=== PATIENT | male | born 1950 | race Caucasian/White ===

== ENCOUNTER 2016-04-24 07:03 | Emergency (ER) | payer OTHER ==
[2016-04-24] MEDS ORDERED: ONDANSETRON DISINTEGRATING 4 MG TAB PO ONE (08:14)
[2016-04-24] MEDS ORDERED: ONDANSETRON DISINTEGRATING 4 MG TAB ONE (08:15)
--- NOTE | 2016-04-24 08:19 | EDPHY ---
H & P Time Seen by Provider: 04/24/16 07:57 HPI/ROS: CHIEF COMPLAINT: Headache, chronic pain, vomiting HISTORY OF PRESENT ILLNESS: 65-year-old male presents to the emergency department by private vehicle complaining of chronic headaches, chronic diffuse pain in his body and now vomiting. The patient has a history of chronic pain. He takes oxycodone 15 mg every 6 hours. He ran out of his medication yesterday morning. The patient feels that he is experiencing symptoms of withdrawal. The patient has a history of chronic headaches and the headache that he has now feels exactly like his chronic headaches. Patient states I have fibromyalgia . He denies any reported trauma. He has vomited twice although does not feel nauseous now. No neck pain. No chest pain or difficulty breathing. Denies abdominal pain. He denies diarrhea. He has had normal bowel movements. REVIEW OF SYSTEMS: Constitutional: No fever, no chills. Eyes: No double or blurry vision. ENT: No sore throat. Respiratory: No cough, no shortness of breath. Cardiac: No chest pain. Gastrointestinal: Vomiting. No abdominal pain or diarrhea Genitourinary: No dysuria. Musculoskeletal: No neck or back pain. Skin: No rashes. Neurological: Headache as above Past Medical/Surgical History: Chronic pain, narcotic dependence Social History: Single Smoking Status: Former smoker Physical Exam: General Appearance: Alert, no distress. Afebrile. No apparent distress. No vomiting on exam. 184/102, 97% on room air. Eyes: Pupils equal and round. Extraocular motions are all intact. ENT: Mouth: Mucous membranes moist. Respiratory: No wheezing, rhonchi, or rales, lungs are clear to auscultation. Cardiovascular: Regular rate and rhythm. Gastrointestinal: Abdomen is soft and nontender, no masses, no rebound or guarding, bowel sounds normal. No CVA tenderness bilaterally. Neurological: Alert and oriented x 3, cranial nerves II through XII grossly intact Skin: Warm and dry, no rashes. Musculoskeletal: Nontender to palpate along the cervical, thoracic or lumbar spine. Neck is supple. Extremities: Full range of motion and no peripheral edema. Psychiatric: Patient is oriented X 3, there is no agitation. Constitutional: Initial Vital Signs Temperature (C) 36.8 C 04/24/16 07:14 Heart Rate 100 04/24/16 07:14 Respiratory Rate 22 H 04/24/16 07:14 Blood Pressure 184/102 H 04/24/16 07:14 O2 Sat (%) 97 04/24/16 07:14 O2 Delivery Mode Room Air Allergies/Adverse Reactions: No Known Allergies Allergy (Verified 04/24/16 07:13) Home Medications: Medication Instructions Recorded Oxycodone HCl 02/03/16 Amlodipine Besylate 04/24/16 Lisinopril 04/24/16 Ondansetron Odt [Zofran Odt] 4 mg PO Q4PRN #5 tab 04/24/16 oxyCODONE IR [Oxycodone Ir (*)] 15 mg PO TID PRN #13 tab 04/24/16 Medical Decision Making ED Course/Re-evaluation: 65-year-old male presents to the emergency department with chronic pain. He ran out of his chronic pain medication. The patient feels that his headache and his diffuse myalgias are what he experiences daily and for years. He does not feel that the headache is abnormal or unusual for him. He feels that this is the same typical headache that he gets daily. He ran out of his pain medication yesterday and he states I think I am experiencing symptoms of withdrawal. The patient is on a chronic pain contract with [facility]. The patient is aware that receiving prescription for chronic pain medication in the emergency department is breathing his pain contract with [facility]. Departure - Departure Disposition: Home, Routine, Self-Care Clinical Impression: Chronic pain Qualifiers: Chronic pain type: chronic pain syndrome Qualifier Code: (G89.4) Chronic pain syndrome Headache Qualifiers: Headache type: unspecified Headache chronicity pattern: chronic headache Intractability: not intractable Qualifier Code: (R51) Headache Condition: Good Instructions: Chronic Pain (ED), General Headache (ED), Acute Nausea and Vomiting (ED) Additional Instructions: You declined any workup for your headache and chronic pain. Please follow up with your primary care provider regarding her ongoing chronic pain medication. Zofran as needed for nausea. Take your oxycodone as prescribed. Return to the emergency department if your symptoms change, if he developed an atypical headache, or if you feel worse in any way. Referrals: Odalis Castro PA [Primary Care Provider] - 1 day without fail Prescriptions: oxyCODONE IR [Oxycodone Ir (*)] 15 mg PO TID PRN #13 tab PRN Reason: Pain, Moderate Ondansetron Odt [Zofran Odt] 4 mg PO Q4PRN #5 tab
[2016-04-24 08:35] VITALS: BP 145/89; PULSE 86; RESP 18; TEMP 97.7; O2SAT 96
== END 2016-04-24 08:33 | disposition home or self-care (01) ==
DX: R51 Headache (principal); G89.4 Chronic pain syndrome; Z87.891 Personal history of nicotine dependence

== ENCOUNTER 2016-11-13 03:37 | Emergency (ER) | payer OTHER ==
[2016-11-13 03:51] VITALS: RESP 16
--- NOTE | 2016-11-13 05:37 | EDPHY ---
H & P Stated Complaint: HTN HPI/ROS: HPI The patient presents with elevated blood pressure tonight with systolic of 200. He is being treated for herpes zoster with V2 distribution. He has finished a course of acyclovir. He has had a facial droop for the last several days on this side but thought it became a little bit worse tonight and that is why he checked his blood pressure. He does not have any weakness of his arms or legs, dizziness, headache, vomiting.. REVIEW OF SYSTEMS Constitutional: No fever, no chills. Eyes: No discharge. ENT: No sore throat. Cardiovascular: No chest pain, no palpitations. Respiratory: No cough, no shortness of breath. Gastrointestinal: No abdominal pain, no vomiting. Genitourinary: No hematuria. Musculoskeletal: No back pain. Skin: No rashes. Neurological: No headache. 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, unable to raise his eyebrow, can fully close eyelid Skin: Vesicular rash in left face in V2 distribution Musculoskeletal: Neck is supple non tender Extremities: symmetrical, full range of motion Psychiatric: Patient is oriented X 3, there is no agitation Source: Patient Exam Limitations: No limitations - Personal History Current Tetanus/Diphtheria Vaccine: Unsure Current Tetanus Diphtheria and Acellular Pertussis (TDAP): Unsure - Medical/Surgical History Hx Asthma: No Hx Chronic Respiratory Disease: No Hx Diabetes: No Hx Cardiac Disease: Yes Hx Renal Disease: No Hx Cirrhosis: No Hx Alcoholism: No Hx HIV/AIDS: No Hx Splenectomy or Spleen Trauma: No Other PMH: chronic neck pain, spinal stenosis, hernia repair, tennis elbow, knee surgery, bone spur surgery on right big toe, heart murmur, hepatitis A - Social History Smoking Status: Former smoker Constitutional: Initial Vital Signs Temperature (C) 37.1 C 11/13/16 03:49 Heart Rate 107 H 11/13/16 03:49 Respiratory Rate 16 11/13/16 03:49 Blood Pressure 175/98 H 11/13/16 03:49 O2 Sat (%) 97 11/13/16 03:49 O2 Delivery Mode Room Air Allergies/Adverse Reactions: No Known Allergies Allergy (Verified 04/24/16 07:13) Home Medications: Medication Instructions Recorded Oxycodone HCl 02/03/16 Amlodipine Besylate 04/24/16 Lisinopril 04/24/16 Ondansetron Odt [Zofran Odt] 4 mg PO Q4PRN #5 tab 04/24/16 oxyCODONE IR [Oxycodone Ir (*)] 15 mg PO TID PRN #13 tab 04/24/16 Acyclovir 800 mg PO 5XD #35 tab 11/13/16 predniSONE [Prednisone] 60 mg PO DAILY #30 tablet 11/13/16 Medical Decision Making - Diagnostics Imaging Results: CT of head non con shows no acute findings, discussed with the radiologist software test automation engineer. Imaging: Discussed imaging studies w/ knockup worker Radiologist Differential Diagnosis: This is a 66-year-old man with history of chronic pain on multiple medications, recent diagnosis of left-sided facial and shingles, who presents with elevated blood pressures at home with systolic of 200 over diastolic of 103. He also reports new left-sided facial droop for the last few days which he thinks was worse tonight. On exam, he does have a rash consistent with varicella zoster. He does have a facial droop which involves his eyebrow lift. His blood pressure has improved since being in the emergency department. Differential diagnosis includes Kenneth Ramos syndrome, Vallejo's palsy, less likely CVA. In the emergency department, CT scan of the head was performed to evaluate for any intracranial hemorrhage or CVA. This was unremarkable. 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 I will write for a 2nd course of acyclovir as well as prednisone for his symptoms. He has follow-up tomorrow with [facility]. He will return to the emergency room if he is worse in any way. I have advised him to monitor his blood pressure, however since its normalization in the emergency room, I doubt any acute intervention is required. 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
[2016-11-13 05:43] VITALS: BP 145/78; PULSE 78; TEMP 98.1; O2SAT 97
== END 2016-11-13 05:43 | disposition home or self-care (01) ==
DX: I10 Essential (primary) hypertension (principal); B02.21 Postherpetic geniculate ganglionitis; Z87.891 Personal history of nicotine dependence

== ENCOUNTER 2016-12-16 17:19 | Inpatient (IN) | payer OTHER ==
--- NOTE | 2016-12-16 17:25 | EDPHY ---
H & P HPI/ROS: CHIEF COMPLAINT: Syncope HISTORY OF PRESENT ILLNESS: This patient is a 66 year old male arriving via EMS following a syncopal episode this afternoon shortly prior to arrival. He has noted weakness over the last two or three weeks which seems to be related to taking gabapentin for post- herpetic neuralgia. He feels lightheaded when he stands and has noted muscle weakness and twitching. He has also had a reduced activity level recently, and felt off balance while walking yesterday. These symptoms have persisted since he began the gabapentin, but he does feel the post-herpetic pain is significantly reduced by the medication. His most recent dose was at 10am this morning. As usual, he began to feel dizzy after taking the medication. Just prior to arrival, he was at the grocery store, and bystanders summoned EMS because he appeared quite weak. EMS found him sitting in a chair, fully alert and oriented, and when they attempted to help him stand, he had a syncopal episode. He was once again alert and oriented following the episode. He was noted to be hypotensive in transport. The patient denies any other recent changes in medication. He denies recent trauma. No nausea, vomiting, diarrhea, hematochezia, or melena. He endorses reduced appetite and fluid consumption recently. REVIEW OF SYSTEMS: A 10 point review of systems was performed and is negative with the exception of the elements mentioned in the history of present illness. - Medical/Surgical History PMH: 1. Hypertension 2. Shingles 3. Chronic neck pain 4. hernia repair 5. tennis elbow 6. Knee surgery 7. Bone spur surgery on right big toe 8. Heart murmur 9. Hepatitis A 10. Spinal stenosis Hx Asthma: No Hx Chronic Respiratory Disease: No Hx Diabetes: No Hx Cardiac Disease: Yes Hx Renal Disease: No Hx Cirrhosis: No Hx Alcoholism: No Hx HIV/AIDS: No Hx Splenectomy or Spleen Trauma: No Other PMH: chronic neck pain, spinal stenosis, hernia repair, tennis elbow, knee surgery, bone spur surgery on right big toe, heart murmur, hepatitis A - Social History Smoking Status: Former smoker Additional Social History: Lives independently at [facility]. Former smoker. Disabled. PCP Odalis Castro at [facility]. - Physical Exam Exam: General Appearance: Alert, no distress Eyes: Pupils equal and round, no conjunctival pallor or injection ENT, Mouth: Mucous membranes dry Neck: Normal inspection Respiratory: End expiratory wheezes. Cardiovascular: Regular rate and rhythm Gastrointestinal: Abdomen is soft and non- tender Neurological: A&O, nonfocal, normal gait Skin: Warm and dry, no rash Extremities: Nontender, no pedal edema Psychiatric: Mood and affect normal Constitutional: Initial Vital Signs Temperature (C) 36.4 C 12/16/16 17:31 Heart Rate 73 12/16/16 17:31 Respiratory Rate 23 H 12/16/16 17:31 Blood Pressure 110/73 12/16/16 17:31 O2 Sat (%) 93 12/16/16 17:31 O2 Delivery Mode Room Air Allergies/Adverse Reactions: No Known Allergies Allergy (Verified 12/16/16 18:47) Home Medications: Medication Instructions Recorded Acetaminophen [Tylenol 325mg (*)] 650 mg PO Q6H PRN 12/16/16 Amitriptyline HCl [Elavil 50 mg 25 - 50 mg PO HS PRN 12/16/16 (*)] Gabapentin [Neurontin 300 MG (*)] 600 - 900 mg PO TID PRN 12/16/16 Lisinopril/Hctz 20/12.5MG 2 ea PO DAILY 12/16/16 [Zestoretic/Prinzide 20/12.5MG (*)] Trolamine Salicylate [Aspercreme] 1 kerrie TP TID PRN 12/16/16 amLODIPine BESYLATE [Norvasc 10 mg 10 mg PO DAILY 12/16/16 (*)] oxyCODONE IR [Oxycodone Ir (*)] 15 mg PO Q4H PRN 12/16/16 Medical Decision Making - Diagnostics EKG Interpretation: EKG interpreted by me reveals normal sinus rhythm, rate 68, nonspecific T-wave changes in the inferior leads ED Course/Re-evaluation: 66 year old male presents following a syncopal episode and 2-3 week history of lightheadedness and muscle weakness. He was evaluated here 11/13 for facial droop and hypertension related to his herpes zoster infection (V2 distribution) and discharged home in good condition. 17:20 Received EMS report at bedside. Plan for labs including CBC, BMP, and Troponin. Plan to administer 1L IV NS. Hypotension resolved after IV fluids. Creatinine and BUN elevated consistent with acute renal failure. Most likely secondary to dehydration and hypotension. Plan for UA, Bladder scan, renal ultrasound. 18:[address] consulted with [address]ist service. Dr. Soler accepts admission for acute renal failure and syncope. Differential Diagnosis: Differential diagnosis includes does not limited to urinary retention, side effect from medication, dehydration, intrinsic renal disease. - Data Points Laboratory Results: Laboratory Results 12/16/16 17:30 12/16/16 17:30 Medications Given: Amlodipine Besylate (Norvasc) 10 mg PO DAILY [facility] Stop: 06/15/17 08:59 Last Admin: 12/17/16 08:09 Dose: 10 mg Gabapentin (Neurontin) 600 - 900 mg PO TID PRN PRN Reason: Pain, Moderate Stop: 06/14/17 19:39 Last Admin: 12/17/16 12:29 Dose: 900 mg Heparin Sodium (Porcine) (Heparin Sc Injection) 5,000 unit SC Q8 [facility] Stop: 06/14/17 21:59 Last Admin: 12/17/16 14:44 Dose: 5,000 unit Sodium Chloride (Ns) 1,000 mls @ 100 mls/hr IV CONT [facility] Stop: 06/14/17 19:44 Last Admin: 12/17/16 08:09 Dose: 1,000 mls Oxycodone HCl (Oxycodone Ir) 15 mg PO Q4H PRN PRN Reason: Pain, Severe Stop: 12/26/16 19:39 Last Admin: 12/17/16 19:49 Dose: 15 mg Tamsulosin HCl (Flomax) 0.4 mg PO DAILY [facility] Stop: 06/15/17 08:59 Last Admin: 12/17/16 08:09 Dose: 0.4 mg Discontinued Medications Sodium Chloride (Ns) 1,000 mls @ 0 mls/hr IV ONCE ONE; Wide Open PRN Reason: Protocol Stop: 12/16/16 18:36 Last Admin: 12/16/16 18:38 Dose: 1,000 mls Departure - Departure Disposition: [facility] Inpatient Acute Clinical Impression: Acute renal failure Qualifiers: Acute renal failure type: unspecified Qualified Code(s): N17.9 - Acute kidney failure, unspecified Syncope Qualifiers: Syncope type: unspecified Qualified Code(s): R55 - Syncope and collapse Condition: Fair Report Scribed for: Zenobia Landeros Report Scribed by: Lorena Steel Date of Report: 12/16/16 Time of Report: 17:24 Physician Review and Approval Statement: 12/16/16 17:24 Portions of this note were transcribed by a medical language specialist. I personally performed a history, physical exam, medical decision making, and confirmed accuracy of information the transcribed note.
--- NOTE | 2016-12-16 17:43 | CPEKG ---
Heart Rate: 68 RR Interval: 882 P-R Interval: 172 QRSD Interval: 102 QT Interval: 364 QTC Interval: 388 P Rives: 64 QRS Rives: -34 T Wave Rives: -3 EKG Severity - BORDERLINE ECG - EKG Impression: SINUS RHYTHM EKG Impression: LEFT AXIS DEVIATION EKG Impression: BORDERLINE T ABNORMALITIES, INFERIOR LEADS Electronically Signed By: Zenobia Landeros 16-Dec-2016 22:58:06
[2016-12-16 17:56] LABS: % IMMATURE GRANULYOCYTES 0.4 % (0.0-1.1); ABSOLUTE IMMATURE GRANULOCYTES 0.05 10^3/uL (0.00-0.10); ADD DIFF? NO; ADD MORPH? NO; ADD SCAN? NO; ATYPICAL LYMPHOCYTE FLAG 0 (0-99); FRAGMENT RBC FLAG 0 (0-99); HEMATOCRIT 33.8 % (40.0-51.0); HEMOGLOBIN 11.1 g/dL (13.7-17.5); LEFT SHIFT FLG 0 (0-99); LIPEMIA HEMOLYSIS FLAG 80 (0-99); MEAN CELL HEMOGLOBIN 31.1 pg (27.9-34.1); MEAN CELL HEMOGLOBIN CONCENTR. 32.8 g/dL (32.4-36.7); MEAN CELL VOLUME 94.7 fL (81.5-99.8); MEAN PLATELET VOLUME 10.5 fL (8.7-11.7); PLATELET CLUMPS FLAG 0 (0-99); PLATELET COUNT 312 10^3/uL (150-400); RED BLOOD CELL COUNT 3.57 10^6/uL (4.40-6.38); RED CELL DISTRIBUTION WIDTH 13.5 % (11.5-15.2)
[2016-12-16 18:05] LABS: ANION GAP 14 mEq/L (8-16); CALCIUM 9.3 mg/dL (8.5-10.4); CARBON DIOXIDE 20 mEq/l (22-31); CHLORIDE 102 mEq/L (97-110); CREATININE 3.5 mg/dL (0.7-1.3); GLOMERULAR FILTRATION RATE 18; GLUCOSE 141 mg/dL (70-100); POTASSIUM 4.8 mEq/L (3.5-5.2); SODIUM 136 mEq/L (134-144)
[2016-12-16 18:17] LABS: TROPONIN I < 0.012 ng/mL (0.000-0.034)
[2016-12-16] MEDS ORDERED: NS 1,000 ML IV ONE (18:35)
[2016-12-16] MEDS ORDERED: AMITRIPTYLINE HCL 50 MG TAB PO PRN (19:40)
[2016-12-16] MEDS ORDERED: ACETAMINOPHEN 325 MG TAB PO PRN ×2 (19:40)
[2016-12-16] MEDS ORDERED: ONDANSETRON 4 MG/2 ML VIAL IVP PRN (19:40)
--- NOTE | 2016-12-16 20:32 | GHP ---
[f rep st] HISTORY AND PHYSICAL DATE OF ADMISSION: 12/16/2016 CHIEF COMPLAINT: Weakness and syncope. HISTORY: The patient is a 66-year-old male who has felt increasingly more weak over the last 2-3 wee ks. He attributes timing of weakness related to initiation of gabapentin for some postherpetic neura lgia. He has been getting increasingly more lightheaded when he stands up. Today he walked to the [employer] store and in the grocery store a bystander called 911 because he was so profoundly weak. EMS arrived and at that point he was sitting in chair, but when they tried to get him up he had syncope r ight in front of EMS. He had hypotension en route. He complains of decreased oral intake as well as decreased urine output for the last couple of days. He has had some difficulty with urination. The re has been no nausea or vomiting. He has muscle twitching which he attributes to the gabapentin. PAST MEDICAL HISTORY: 1. Postherpetic neuralgia. 2. Neck pain with continuous narcotic dependency. 3. Hypertension. PAST SURGICAL HISTORY: Neck surgery. MEDICATIONS: Please see computer record for full detailed list. ALLERGIES: No known drug allergies. SOCIAL HISTORY: No smoking. No alcohol. Lives at [facility]. REVIEW OF SYSTEMS: A complete review of systems obtained and review of systems is negative regarding constitutional, HEENT, GI, pulmonary, cardiovascular, , hematology, skin, musculoskeletal, endocri ne, psych except for positives and negatives as in HPI. FAMILY HISTORY: Reviewed, noncontributory to presenting complaint. PHYSICAL EXAMINATION: GENERAL: Well-developed, well-nourished male, in no acute distress. VITAL SI GNS: Temperature 36.4, pulse 73, blood pressure 103/57, saturating 91% on room air. HEENT: Eyes: Normal conjunctivae. Pupils react to light. ENT: Normal ears and nose. Hearing intact. Normal li ps and teeth. Oropharynx moist. NECK: Trachea midline. No thyromegaly. CHEST: Normal respirator y effort. Lungs clear to auscultation bilaterally. CARDIOVASCULAR: Regular rhythm. No murmur. No extremity edema. ABDOMEN: Soft, nontender. No hepatosplenomegaly. SKIN: Warm, dry, intact. No r french. MUSCULOSKELETAL: No cyanosis or clubbing. Strength 5/5 upper and lower extremities. NEUROLOG IC: Cranial nerves intact, normal sensation to light touch. PSYCH: Alert and oriented x3. Normal mood and affect. Normal judgment and insight. Normal memory. LABORATORY: White count 12.5, hematocrit 37.8, platelets 312. Sodium 136, potassium 4.8, chloride 1 02, bicarb 20, BUN 47, creatinine 3.5, glucose 141, troponin is negative. EKG viewed by me: My personal interpretation is normal sinus rhythm, no ST or T-wave changes. Renal ultrasound shows no hydronephrosis. He had a bladder volume of 344 and he was unable to void. ASSESSMENT/PLAN: 1. Acute renal failure. Baseline creatinine is normal as we have documentation of a creatinine of 1 .0 in January,. I suspect this is a combination of hypovolemia plus ongoing lisinopril and hyd rochlorothiazide administration as well as an element of obstruction due to likely BPH. I will also check a CPK. Will hydrate with IV fluid, hold his SUBHASH inhibitor and diuretic. We will follow bladde r scans and if he has persistent elevation of residuals, he may need a catheter. I will start him on Flomax. 2. Syncope. I suspect this was due to hypovolemia. Will also watch him on telemetry and check a TS H. 3. Post herpetic neuralgia. I doubt gabapentin has caused his abnormalities and it can be continued if needed. He does say it helps quite a bit for his pain. 4. Chronic neck pain with continuous narcotic dependency. His home doses of oxycodone will be quin nued. 5. Deep venous thrombosis prophylaxis. He is high risk. Will place him on subcu heparin. CODE STATUS: Full. ADMISSION STATUS: Will admit to inpatient as I anticipate greater than 2 midnights given severity of acute renal failure on presentation. /[id number]/MODL
[2016-12-16] MEDS: HEPARIN 5,000 UNIT/0.5 ML SYR SC SCH (22:02)
[2016-12-16] MEDS: NS 1,000 ML IV SCH (22:03)
[2016-12-16] MEDS: GABAPENTIN 300 MG CAP PO PRN (22:55)
[2016-12-16 23:14] LABS: COLOR YELLOW; LEUKOCYTE ESTERASE,URINE NEGATIVE (NEGATIVE); NITRITE,URINE NEGATIVE (NEGATIVE)
[2016-12-16] MEDS: oxyCODONE IR 15 MG TAB PO PRN (23:46)
[2016-12-17] MEDS: oxyCODONE IR 15 MG TAB PO PRN ×4 (03:30→19:49)
[2016-12-17 04:43] LABS: % IMMATURE GRANULYOCYTES 0.4 % (0.0-1.1); ABSOLUTE IMMATURE GRANULOCYTES 0.03 10^3/uL (0.00-0.10); ADD DIFF? NO; ADD MORPH? NO; ADD SCAN? NO; ATYPICAL LYMPHOCYTE FLAG 0 (0-99); FRAGMENT RBC FLAG 0 (0-99); HEMATOCRIT 29.8 % (40.0-51.0); HEMOGLOBIN 9.8 g/dL (13.7-17.5); LEFT SHIFT FLG 0 (0-99); LIPEMIA HEMOLYSIS FLAG 80 (0-99); MEAN CELL HEMOGLOBIN 30.8 pg (27.9-34.1); MEAN CELL HEMOGLOBIN CONCENTR. 32.9 g/dL (32.4-36.7); MEAN CELL VOLUME 93.7 fL (81.5-99.8); MEAN PLATELET VOLUME 10.4 fL (8.7-11.7); PLATELET CLUMPS FLAG 0 (0-99); PLATELET COUNT 275 10^3/uL (150-400); RED BLOOD CELL COUNT 3.18 10^6/uL (4.40-6.38); RED CELL DISTRIBUTION WIDTH 13.4 % (11.5-15.2)
[2016-12-17 05:15] LABS: ALANINE AMINOTRANSFERASE 27 IU/L (21-72); ALBUMIN 3.6 g/dL (3.5-5.0); ALKALINE PHOSPHATASE 55 IU/L (38-126); ANION GAP 10 mEq/L (8-16); ASPARTATE AMINOTRANSFERASE 18 IU/L (17-59); BILIRUBIN,TOTAL 0.4 mg/dL (0.1-1.4); BILIRUBIN-CONJUGATED 0.3 mg/dL (0.0-0.5); BILIRUBIN-UNCONJUGATED 0.1 mg/dL (0.0-1.1); CALCIUM 8.7 mg/dL (8.5-10.4); CARBON DIOXIDE 20 mEq/l (22-31); CHLORIDE 106 mEq/L (97-110); CREATININE 2.1 mg/dL (0.7-1.3); GLOMERULAR FILTRATION RATE 32; GLUCOSE 85 mg/dL (70-100); MAGNESIUM 2.3 mg/dL (1.6-2.3); POTASSIUM 5.3 mEq/L (3.5-5.2); SODIUM 136 mEq/L (134-144); TOTAL PROTEIN 6.2 g/dL (6.3-8.2)
[2016-12-17 05:26] LABS: TROPONIN I < 0.012 ng/mL (0.000-0.034)
[2016-12-17] MEDS: HEPARIN 5,000 UNIT/0.5 ML SYR SC SCH ×3 (05:40→21:51)
[2016-12-17] MEDS: NS 1,000 ML IV SCH (08:09)
[2016-12-17] MEDS: TAMSULOSIN HCL 0.4 MG CAP PO SCH (08:09)
--- NOTE | 2016-12-17 10:31 | ASMTCMCOM ---
CM Note CM Note Notes: Pt's needs are TBD until therapies evalauate pt and further testing completed. C/M will continue to follow. Date Signed: 12/17/2016 10:30 AM Electronically Signed By:Trina Howard LCSW
[2016-12-17] MEDS: GABAPENTIN 300 MG CAP PO PRN ×2 (12:29→21:52)
--- NOTE | 2016-12-17 13:35 | HOSPPROG ---
Hospitalist Progress Note Assessment/Plan: 66 yo M w syncope, weakness, charline charline: likely prerenal in setting of SUBHASH and diuretic those on hold hydrating no hydronephrosis, so bph not contributing urinary retention: flomax started dc sauceda syncope: tele, trop neg infectious workup neg (cxr interp by me) suspect hypovolemic posyt herpetic neuralgia: continue neurontin ankle pain: check plain film of R given tenderness over lat malleolus proph: sc heparin Subjective: cr improved. tele: no events (interp by me) Objective: Vital Signs Temp Pulse Resp BP Pulse Ox 37.3 C 83 17 99/54 L 92 12/17/16 11:25 12/17/16 11:25 12/17/16 11:25 12/17/16 11:25 12/17/16 11:25 Laboratory Results 12/17/16 04:20 12/17/16 04:20 12/16/16 12/17/16 12/18/16 05:59 05:59 05:59 Intake Total 759 Output Total 1150 425 Balance -391 -425 - Physical Exam Constitutional: no apparent distress, appears nourished Eyes: PERRL, anicteric sclera Ears, Nose, Mouth, Throat: moist mucous membranes, hearing normal Cardiovascular: regular rate and rhythym, no murmur, rub, or gallop Respiratory: no respiratory distress, no rales or rhonchi Gastrointestinal: normoactive bowel sounds, soft, non-tender abdomen Genitourinary: no bladder fullness, sauceda in urethra Skin: warm, normal color Musculoskeletal: full muscle strength, no muscle tenderness Neurologic: AAOx3 ICD10 Worksheet Patient Problems: Problems Problem Status Onset Acute renal failure Acute Chronic pain Acute
[2016-12-17] MEDS ORDERED: POLYETHYLENE GLYCOL 3350 17 GM PKT PO PRN (21:10)
[2016-12-17] MEDS ORDERED: LACTULOSE 20 GM/30 ML UDCUP PO PRN (21:10)
[2016-12-17] MEDS ORDERED: BISACODYL 10 MG SUPP PR PRN (21:10)
[2016-12-17] MEDS ORDERED: MAGNESIUM HYDROXIDE 30 ML UDCUP PO PRN (21:10)
[2016-12-17] MEDS: CALCIUM CARBONATE 500 MG CHEWABLE TAB PO PRN (21:51)
[2016-12-17] MEDS: SENNOSIDES/DOCUSATE SODIUM TAB PO SCH (21:52)
[2016-12-18] MEDS: oxyCODONE IR 15 MG TAB PO PRN ×5 (00:34→19:55)
[2016-12-18] MEDS: HEPARIN 5,000 UNIT/0.5 ML SYR SC SCH (05:45)
[2016-12-18] MEDS: TAMSULOSIN HCL 0.4 MG CAP PO SCH (09:50)
[2016-12-18] MEDS: SENNOSIDES/DOCUSATE SODIUM TAB PO SCH ×2 (09:50→19:54)
[2016-12-18] MEDS: GABAPENTIN 300 MG CAP PO PRN ×2 (10:09→18:00)
[2016-12-18] MEDS: CALCIUM CARBONATE 500 MG CHEWABLE TAB PO PRN ×2 (10:10→21:48)
[2016-12-18 10:21] LABS: ANION GAP 8 mEq/L (8-16); CALCIUM 9.1 mg/dL (8.5-10.4); CARBON DIOXIDE 23 mEq/l (22-31); CHLORIDE 104 mEq/L (97-110); CREATININE 1.3 mg/dL (0.7-1.3); GLOMERULAR FILTRATION RATE 56; GLUCOSE 89 mg/dL (70-100); POTASSIUM 4.8 mEq/L (3.5-5.2); SODIUM 135 mEq/L (134-144)
--- NOTE | 2016-12-18 12:40 | HOSPPROG ---
Hospitalist Progress Note Assessment/Plan: 66 yo Male new to my care 12/18 with syncope, weakness, charline charline (resolved) likely prerenal in setting of SUBHASH and diuretic -dc ivf -cont to hold subhash urinary retention -cont flomax syncope: tele, trop neg infectious workup neg (cxr interp by me) suspect hypovolemic posyt herpetic neuralgia continue neurontin right ankle pain secondary to distal fibular fracture -xrays reviewed showing: Hairline obliquely-oriented fracture through the distal fibular diaphysis. 2. Punctate avulsion fragments off the medial and the lateral malleoli. -ortho consult proph: change sc heparin to lovenox Subjective: reports ankle pain. tolerating diet. no other acute complaints Objective: Vital Signs Temp Pulse Resp BP Pulse Ox 37.4 C 75 12 122/69 H 93 12/18/16 11:31 12/18/16 11:31 12/18/16 11:31 12/18/16 11:31 12/18/16 11:31 Laboratory Results 12/17/16 04:20 12/18/16 10:00 12/17/16 12/18/16 12/19/16 05:59 05:59 05:59 Intake Total 759 3501 Output Total 1150 2625 250 Balance -391 876 -250 - Physical Exam Ears, Nose, Mouth, Throat: moist mucous membranes, hearing normal, ears appear normal, no oral mucosal ulcers Cardiovascular: regular rate and rhythym, no murmur, rub, or gallop Respiratory: no respiratory distress, no rales or rhonchi, clear to auscultation Gastrointestinal: normoactive bowel sounds, soft, non-tender abdomen, no palpable masses ICD10 Worksheet Patient Problems: Problems Problem Status Onset Chronic pain Acute Acute renal failure Acute Syncope Acute
--- NOTE | 2016-12-18 18:54 | GCON ---
[f rep st] CONSULTATION DATE OF CONSULTATION: 12/18/2016 REASON FOR CONSULTATION: Right fibular fracture. HISTORY OF PRESENT ILLNESS: The patient is a pleasant 66-year-old male who was admitted yesterday af ter a fall at home, for acute renal failure and syncope. X-rays obtained last night showed a nondisp laced distal fibular fracture. I was consulted for followup to fracture care. PRIOR MEDICAL HISTORY: Renal failure. Hypertension. Degenerative disk disease in the cervical spin e. PRIOR SURGICAL HISTORY: Cervical fusion. MEDICATIONS: Please see attached list. ALLERGIES: No known drug allergies. SOCIAL HISTORY: He is in independent living at [facility]. Does not drink. Does not smoke. REVIEW OF SYSTEMS: Unremarkable. PHYSICAL EXAMINATION: VITAL SIGNS: Blood pressure is 122/69, heart rate 75, respiratory rate is 12, oxygen saturation is 93% on room air, temperature is 37.4. CONSTITUTIONAL: He is alert and oriente d x3. MUSCULOSKELETAL: Right ankle has a little bit of effusion. There is tenderness over the distal 3rd of the fibula; no tenderness over the lateral ankle ligaments or medial ankle ligaments. There is no midfoot or forefoot tenderness. His calf is otherwise soft. Achilles tendon is intact. He has 1+ dorsalis pedis and posterior tibial pulses and is moving his toes well. RADIOLOGY: Three views of the ankle taken last night are reviewed. They show a nondisplaced oblique fracture of the distal fibula. Ankle mortise is well maintained. ASSESSMENT: Nondisplaced distal fibula fracture, right. PLAN: The patient can bear weight in a Cam walker boot. We will fit for one of those, [facility] He can be weightbearing as tolerated. He will need to wear the boot for the next 4-6 weeks. He will need a followup x-ray with me in my office in 2-3 weeks to check the healing and alignment of the fracture. This was explained to him; he understands this. Again, followup with me will be in 2 -3 weeks with x-rays. /[id number]/MODL
[2016-12-19] MEDS: GABAPENTIN 300 MG CAP PO PRN ×2 (03:58→12:06)
[2016-12-19] MEDS: oxyCODONE IR 15 MG TAB PO PRN ×3 (03:58→13:33)
[2016-12-19 04:37] LABS: ANION GAP 10 mEq/L (8-16); CARBON DIOXIDE 24 mEq/l (22-31); CHLORIDE 101 mEq/L (97-110); CREATININE 1.3 mg/dL (0.7-1.3); GLOMERULAR FILTRATION RATE 56; GLUCOSE 90 mg/dL (70-100); POTASSIUM 5.2 mEq/L (3.5-5.2); SODIUM 135 mEq/L (134-144)
[2016-12-19] MEDS: TAMSULOSIN HCL 0.4 MG CAP PO SCH (08:48)
[2016-12-19] MEDS: SENNOSIDES/DOCUSATE SODIUM TAB PO SCH (08:49)
[2016-12-19] MEDS ORDERED: ENOXAPARIN 40 MG/0.4 ML SYR SC SCH (09:00)
[2016-12-19 11:59] VITALS: BP 139/75; PULSE 80; RESP 17; TEMP 98.6; O2SAT 93
--- NOTE | 2016-12-19 14:55 | PDIAF ---
- Diagnosis Diagnosis: rt fibular fracture Code Status: Full Code - Medication Management Discharge Medications: Medications to Continue on Transfer Acetaminophen [Tylenol 325mg (*)] 650 mg PO Q6H PRN 12/16/16 [Last Taken ] Amitriptyline HCl [Elavil 50 mg (*)] 25 - 50 mg PO HS PRN 12/16/16 [Last Taken 12/15/16] Gabapentin [Neurontin 300 MG (*)] 600 - 900 mg PO TID PRN 12/16/16 [Last Taken Unknown] Trolamine Salicylate [Aspercreme] 1 kerrie TP TID PRN 12/16/16 [Last Taken Unknown] amLODIPine BESYLATE [Norvasc 10 mg (*)] 10 mg PO DAILY 12/16/16 [Last Taken ] oxyCODONE IR [Oxycodone Ir (*)] 15 mg PO Q4H PRN 12/16/16 [Last Taken 12/16/16] Tamsulosin HCl [Flomax 0.4 MG (*)] 0.4 mg PO DAILY #30 cap 12/19/16 [Last Taken Unknown] Discharge Medications: Refer to the Discharge Home Medication list for PRN reason. - Orders Services needed: Physical Therapy Diet Recommendation: no restrictions on diet Diet Texture: Regular Texture Diet - Follow Up Care Current Providers and Referrals: Patient,NotPresent [Unknown] - As per Instructions
--- NOTE | 2016-12-19 15:05 | PDIAF ---
- Diagnosis Diagnosis: rt fibular fracture Code Status: Full Code - Medication Management Discharge Medications: Medications to Continue on Transfer Acetaminophen [Tylenol 325mg (*)] 650 mg PO Q6H PRN 12/16/16 [Last Taken ] Amitriptyline HCl [Elavil 50 mg (*)] 25 - 50 mg PO HS PRN 12/16/16 [Last Taken 12/15/16] Gabapentin [Neurontin 300 MG (*)] 600 - 900 mg PO TID PRN 12/16/16 [Last Taken Unknown] Trolamine Salicylate [Aspercreme] 1 kerrie TP TID PRN 12/16/16 [Last Taken Unknown] amLODIPine BESYLATE [Norvasc 10 mg (*)] 10 mg PO DAILY 12/16/16 [Last Taken ] oxyCODONE IR [Oxycodone Ir (*)] 15 mg PO Q4H PRN 12/16/16 [Last Taken 12/16/16] Tamsulosin HCl [Flomax 0.4 MG (*)] 0.4 mg PO DAILY #30 cap 12/19/16 [Last Taken Unknown] Discharge Medications: Refer to the Discharge Home Medication list for PRN reason. - Orders Services needed: Home Care, Registered Nurse, Physical Therapy, Occupational Therapy Home Care Face to Face: I certify that this patient was under my care and that I had the required [id number] encounter meeting the encounter requirements on the discharge day. My findings support the fact that the patient is homebound as defined in Home Care Face to Face Continued: CMS Chapter 7 Medicare Benefits Manual 30.1.1 , The condition of the patient is such that there exists a normal inability to leave home and consequently, leaving home would require a considerable and taxing effort. Diet Recommendation: no restrictions on diet Diet Texture: Regular Texture Diet - Follow Up Care Current Providers and Referrals: Patient,NotPresent [Unknown] - As per Instructions
--- NOTE | 2016-12-19 15:27 | ASMTCMCOM ---
CM Note CM Note Notes: Pt lives at [facility]. PT recommending SNF but pt refusing (discussed w/PT and offered SNF to pt several times)), says he would like to dc home and is agreeable to [facility]. Pt understands that if he finds he cannot manage well at home he can call PCP to set up SNF rehab. Notified Griffin at [facility]. She will help assist pt out of cab to apt when he returns today. Notified Estrella at [facility] and they are able to accept. Pt said that his sister would probably be able to come over once/week to help him. MOW info given. D/W RN and MD. Cab voucher given per request (pt only has $10 here). Date Signed: 12/19/2016 03:27 PM Electronically Signed By:Minnie Faith RN
--- NOTE | 2016-12-19 15:37 | GDS ---
[f rep st] DISCHARGE SUMMARY DISCHARGE DIAGNOSES: 1. Syncope due to hypovolemia and dehydration. 2. Resolved acute kidney injury, likely due to prerenal azotemia in the setting of dehydration and A CE inhibitor use. 3. Urinary retention. 4. Syncope. 5. Postherpetic neuralgia. 6. Right distal fibular fracture. CONSULTANTS: Dr. Mark Jean, Orthopedics. HOSPITAL COURSE OF STAY BY PROBLEM: 1. Acute renal failure: The patient presented to the hospital after having a syncopal episode and w as found to be in acute renal failure with a creatinine of 3.5. Subsequently, his SUBHASH inhibitor was held. He was hydrated. His creatinine has since corrected to 1.3. A renal ultrasound was done and was negative for hydronephrosis. He was noted to have some urinary retention. He was subsequently s tarted on Flomax, which will be continued on discharge. 2. Right distal fibular fracture: The patient fell prior to coming to the hospital and did report s ome ankle pain. Subsequently, an x-ray was done, which revealed a nondisplaced distal fibular fractu re. He was seen by Dr. Mark Jean from Orthopedics, who recommended a CAM Walker boot, when he wi ll need to wear for 4 to 6 weeks. He should follow up with Dr. Jean in his office in 2 to 3 week s with x-rays. PHYSICAL EXAMINATION: VITAL SIGNS: On day of discharge, blood pressure 139/75, pulse of 80, respira tory rate 17, O2 saturation 93% on room air. Temperature afebrile. GENERAL: No acute distress. HE ART: S1, S2. LUNGS: Clear. ABDOMEN: Soft. EXTREMITIES: No edema. DISCHARGE MEDICATIONS: Please refer to discharge medication reconciliation in [facility] for details. DISCHARGE INSTRUCTIONS: The patient will be discharged from the hospital, where he should follow up with his primary care provider in 1 week for routine hospital followup as well as to check his blood pressure given that we are going to hold his home dose of lisinopril given the fact that he came in i n acute kidney injury and his blood pressure has been okay off medications. I suspect his blood pres sure was likely high in the setting of acute pain from his postherpetic neuralgia a few weeks ago. H e should follow up with Dr. Dirk Dolbeare in his office in 2 to 3 weeks with x-rays. He will need to be in his CAM Walker boot for 4 to 6 weeks. /[id number]/MODL
--- NOTE | 2016-12-20 09:15 | ASDISCHSUM ---
Discharge Information Plan Status:Home with Home Health Medically Cleared to Leave: Discharge Date:12/19/2016 04:15 PM CM D/C Disposition:Home Health Service ADT D/C Disposition:[id number] Projected Discharge Date:12/19/2016 04:15 PM Transportation at D/C: Discharge Delay Reason: Follow-Up Date:12/19/2016 04:15 PM Discharge Slot: Final Diagnosis: Placement Information Patient Contact Information Contact Name:LUIS Relationship:Sister Address: Work Phone: City:[place] Alternate Phone: State/[place] Code:[place] [address] Email: Financial Information Financial Class: Primary Plan Desc:MEDICARE INPATIENT Primary Plan Number:[id number] Secondary Plan Desc: Secondary Plan Number: Assessment Information [facility] CM Progress Note CM Note CM Note Notes: Pt's needs are TBD until therapies evalauate pt and further testing completed. C/M will continue to follow. Date Signed: 12/17/2016 10:30 AM Electronically Signed By:Trina Howard LCSW [facility] CM Progress Note CM Note CM Note Notes: Pt lives at [facility]. PT recommending SNF but pt refusing (discussed w/PT and offered SNF to pt several times)), says he would like to dc home and is agreeable to [facility]. Pt understands that if he finds he cannot manage well at home he can call PCP to set up SNF rehab. Notified Griffin at [facility]. She will help assist pt out of cab to apt when he returns today. Notified Estrella at [facility] and they are able to accept. Pt said that his sister would probably be able to come over once/week to help him. MOW info given. D/W RN and MD. Cab voucher given per request (pt only has $10 here). Date Signed: 12/19/2016 03:27 PM Electronically Signed By:Minnie Faith RN Intervention Information Intervention Type:*IM-Signed Date of Service:12/19/2016 03:27 PM Patient Type:Inpatient Staff Member:Nuvia Ramos Hours: Discipline: Severity: Comment:
== END 2016-12-19 16:15 | disposition home health service (06) | DRG 683 ==
LOC: EDUNIT# → F3N 20:31
PROVIDERS: ADMIT Internal Medicine; ATTEND Internal Medicine
DX: N17.9 Acute kidney failure, unspecified (principal); E86.1 Hypovolemia; E86.0 Dehydration; S82.401A Unspecified fracture of shaft of right fibula, initial encounter for closed fracture; W19.XXXA Unspecified fall, initial encounter; B02.29 Other postherpetic nervous system involvement; M54.9 Dorsalgia, unspecified; R33.9 Retention of urine, unspecified; I10 Essential (primary) hypertension
CPT/HCPCS: 82947-QW; 97116-GP; 97162-GP; 97165-GO; 97535-GO; G8978-GP-CK; G8979-GP-CJ; G8987-GO-CI; G8988-GO-CI; G8989-GO-CI; J1650

== ENCOUNTER 2017-02-15 05:16 | Inpatient (IN) | payer OTHER ==
--- NOTE | 2017-02-15 05:44 | EDPHY ---
H & P Stated Complaint: abd pain bloody diarrhea for past day, constipation after oxycodone use Source: Patient Exam Limitations: No limitations - Personal History Current Tetanus/Diphtheria Vaccine: Unsure Current Tetanus Diphtheria and Acellular Pertussis (TDAP): Unsure - Medical/Surgical History Hx Asthma: No Hx Chronic Respiratory Disease: No Hx Diabetes: No Hx Cardiac Disease: Yes Hx Renal Disease: No Hx Cirrhosis: No Hx Alcoholism: No Hx HIV/AIDS: No Hx Splenectomy or Spleen Trauma: No Other PMH: chronic neck pain, spinal stenosis, hernia repair, tennis elbow, knee surgery, bone spur surgery on right big toe, heart murmur, hepatitis A - Social History Smoking Status: Former smoker Time Seen by Provider: 02/15/17 05:28 HPI/ROS: HPI The patient presents with abdominal pain and bloody diarrhea which has been present for the last several hours. He has a longstanding history of constipation, he takes opiate pain medications and he believes this attributes. He was straining to have a bowel movement and eventually began to pass loose stools, however these had small amount of bright red blood in them. This began about 24 hours ago when he has had episodes of diarrhea he says about every 1.5 hours. When he began to pass stool he developed diffuse crampy abdominal pain which he says he has had previously. He does not have any lightheadedness or dizziness. Is about 2 months ago, he was admitted to the hospital for a syncopal episode and was found to be in acute kidney failure due to pre renal azotemia. He was on SUBHASH-inhibitor, however now he is no longer taking it. REVIEW OF SYSTEMS Constitutional: No fever, no chills. Eyes: No discharge. ENT: No sore throat. Cardiovascular: No chest pain, no palpitations. Respiratory: No cough, no shortness of breath. Gastrointestinal: See HPI Genitourinary: No hematuria. Musculoskeletal: No back pain. Skin: No rashes. Neurological: No headache. PMHx: Chronic back pain Soc Hx: Housed PHYSICAL General Appearance: Alert, appears uncomfortable, shaking his legs Eyes: Pupils equal and round no pallor or injection ENT, Mouth: Mucous membranes moist Respiratory: There are no retractions, lungs are clear to auscultation Cardiovascular: Regular rate and rhythm Gastrointestinal: Abdomen is soft with diffuse tenderness, and guarding throughout all quadrants, no masses, bowel sounds normal Rectal: External hemorrhoids are palpable just proximal to the anal verge, scant amount of bright red blood on rectal exam Neurological: A&O, moves all extremities Skin: Warm and dry, no rashes Musculoskeletal: Neck is supple non tender Extremities: symmetrical, full range of motion Psychiatric: Patient is oriented X 3, there is no agitation (Nohelia Ribera) Constitutional: Initial Vital Signs Temperature (C) 37.0 C 02/15/17 05:18 Heart Rate 104 H 02/15/17 05:18 Respiratory Rate 20 02/15/17 05:18 Blood Pressure 141/91 H 02/15/17 05:18 O2 Sat (%) 99 02/15/17 05:18 O2 Delivery Mode Room Air Allergies/Adverse Reactions: No Known Allergies Allergy (Verified 02/15/17 05:22) Home Medications: Medication Instructions Recorded Acetaminophen [Tylenol 325mg (*)] 650 mg PO Q6H PRN 12/16/16 Amitriptyline HCl [Elavil 50 mg 25 - 50 mg PO HS PRN 12/16/16 (*)] Gabapentin [Neurontin 300 MG (*)] 600 - 900 mg PO TID PRN 12/16/16 Trolamine Salicylate [Aspercreme] 1 kerrie TP TID PRN 12/16/16 amLODIPine BESYLATE [Norvasc 10 mg 10 mg PO DAILY 12/16/16 (*)] oxyCODONE IR [Oxycodone Ir (*)] 15 mg PO Q4H PRN 12/16/16 Tamsulosin HCl [Flomax 0.4 MG (*)] 0.4 mg PO DAILY #30 cap 12/19/16 Omeprazole [Prilosec 20 mg] 20 mg PO DAILY 02/15/17 Medical Decision Making - Diagnostics Imaging: Discussed imaging studies w/ scallop binder Radiologist - Diagnostics Imaging Results: CT abdomen pelvis with IV contrast demonstrates evidence of colitis, does not appear to be ischemic, there are no diverticuli, discussed with Dr. Tomas of Radiology. (Nohelia Ribera) ED Course/Re-evaluation: 730: The patient is signed out to me at change of shift by Dr. Ribera. Per report the patient received a 2nd dose of pain medication and needs re- evaluation. 8:00 a.m.: I rechecked the patient's laboratory studies. The white count was 10. Hematocrit was 35. This is consistent with old values. Patient's chemistry panel was unremarkable with normal renal function. It is noted his previous record that he had admission for pre renal azotemia. On re-evaluation the patient states he still has significant bandlike discomfort in his lower abdomen. The right lower quadrant is the worst. On exam is abdomen was soft with significant tenderness in the right lower quadrant and suprapubic region. There is no rebound or guarding. Based on the patient's ongoing discomfort, CT findings colitis, history of renal issues, the patient will be admitted for observation. I discussed this with the patient. He agrees the plan. The hospitalist was paged. I discussed case with the hospitalist service. Dr. Zimmerman will admit. The patient is aware. (Haily Amin) Differential Diagnosis: 66-year-old man, with chronic back pain and chronic constipation presents with an episode of constipation, followed by loose bloody stools. He has similar episode about 4 years ago. These are painless. He has abdominal pain. Differential diagnosis includes colitis, hemorrhoids, bleeding diverticuli, AVM , colon cancer. In the emergency department, the patient was given IV fluids and a dose of Dilaudid with improvement in his symptoms. I have reassessed him and his abdominal exam is much improved with just mild tenderness now. Labs were checked and were relatively unremarkable. CT scan isn't with IV contrast demonstrates colitis, unlikely to be ischemic. I feel he is likely suffering from infectious colitis. I have explained this to him. He would like another dose pain medication. I have ordered a stool PCR for him in case that he is able to provide a stool specimen. His hemoglobin is stable, actually improved from his recent admission. I do not believe he is bleeding significantly. At 7:00 a.m. the case is signed out to the oncoming provider Dr. Amin. If the patient's pain is improved, he can be discharged with outpatient follow-up with Gastroenterology. If his pain is too much to bear, may require admission for observation to the hospitalist. (Nohelia Ribera) - Data Points Laboratory Results: Laboratory Results 02/15/17 06:00 02/15/17 06:00 02/15/17 02/15/17 06:00 06:00 WBC 10.13 10^3/uL H 10^3/uL (3.80-9.50) RBC 4.19 10^6/uL L 10^6/uL (4.40-6.38) Hgb 12.5 g/dL L g/dL (13.7-17.5) Hct 35.3 % L % (40.0-51.0) MCV 84.2 fL fL (81.5-99.8) MCH 29.8 pg pg (27.9-34.1) MCHC 35.4 g/dL g/dL (32.4-36.7) RDW 13.4 % % (11.5-15.2) Plt Count 291 10^3/uL 10^3/uL (150-400) MPV 9.9 fL fL (8.7-11.7) Neut % (Auto) 75.0 % H % (39.3-74.2) Lymph % (Auto) 15.2 % % (15.0-45.0) Jessamine % (Auto) 7.8 % % (4.5-13.0) Eos % (Auto) 1.1 % % (0.6-7.6) Baso % (Auto) 0.5 % % (0.3-1.7) Nucleat RBC Rel Count 0.0 % % (0.0-0.2) Absolute Neuts (auto) 7.60 10^3/uL H 10^3/uL (1.70-6.50) Absolute Lymphs (auto) 1.54 10^3/uL 10^3/uL (1.00-3.00) Absolute Monos (auto) 0.79 10^3/uL 10^3/uL (0.30-0.80) Absolute Eos (auto) 0.11 10^3/uL 10^3/uL (0.03-0.40) Absolute Basos (auto) 0.05 10^3/uL 10^3/uL (0.02-0.10) Absolute Nucleated RBC 0.00 10^3/uL 10^3/uL (0-0.01) Immature Gran % 0.4 % % (0.0-1.1) Immature Gran # 0.04 10^3/uL 10^3/uL (0.00-0.10) Sodium 139 mEq/L mEq/L (134-144) Potassium 3.5 mEq/L mEq/L (3.5-5.2) Chloride 106 mEq/L mEq/L (97-110) Carbon Dioxide 17 mEq/l L mEq/l (22-31) Anion Gap 16 mEq/L mEq/L (8-16) BUN 12 mg/dL mg/dL (7-23) Creatinine 1.0 mg/dL mg/dL (0.7-1.3) Estimated GFR > 60 Glucose 113 mg/dL H mg/dL (70-100) Calcium 9.6 mg/dL mg/dL (8.5-10.4) Total Bilirubin 0.4 mg/dL mg/dL (0.1-1.4) AST 15 IU/L L IU/L (17-59) ALT 20 IU/L L IU/L (21-72) Alkaline Phosphatase 73 IU/L IU/L (38-126) Total Protein 7.0 g/dL g/dL (6.3-8.2) Albumin 4.2 g/dL g/dL (3.5-5.0) Medications Given: Discontinued Medications Hydromorphone HCl (Dilaudid) 0.5 mg IVP EDNOW ONE Stop: 02/15/17 05:53 Last Admin: 02/15/17 06:07 Dose: 0.5 mg Hydromorphone HCl (Dilaudid) 0.5 mg IVP EDNOW ONE Stop: 02/15/17 07:15 Last Admin: 02/15/17 07:37 Dose: 0.5 mg Sodium Chloride (Ns) 1,000 mls @ 0 mls/hr IV EDNOW ONE; Wide Open PRN Reason: Protocol Stop: 02/15/17 05:53 Last Admin: 02/15/17 06:06 Dose: 1,000 mls Departure - Departure Disposition: [facility] Inpatient Acute Clinical Impression: Colitis Abdominal pain Qualifiers: Abdominal location: lower abdomen, unspecified Qualified Code(s): R10.30 - Lower abdominal pain, unspecified Anemia Qualifiers: Anemia type: unspecified type Qualified Code(s): D64.9 - Anemia, unspecified Condition: Good Instructions: Colitis (ED) Additional Instructions: Please make sure to drink plenty of fluids. You should take your usual pain medication as prescribed. If your symptoms continue, you should call the search marketing analyst I have referred you to below. Otherwise, if your worse any way should return to the emergency department. Referrals: Odalis Castro PA [Primary Care Provider] - As per Instructions Evan Hinojosa MD [[facility] Primary Care Provider] - As per Instructions
[2017-02-15] MEDS ORDERED: HYDROmorphONE/DILAUDID 1 MG/ML INJ IVP ONE ×3 (05:52→09:59)
[2017-02-15] MEDS ORDERED: NS 1,000 ML IV ONE (05:52)
[2017-02-15 06:14] LABS: % IMMATURE GRANULYOCYTES 0.4 % (0.0-1.1); ABSOLUTE IMMATURE GRANULOCYTES 0.04 10^3/uL (0.00-0.10); ADD DIFF? NO; ADD MORPH? NO; ADD SCAN? NO; ATYPICAL LYMPHOCYTE FLAG 0 (0-99); FRAGMENT RBC FLAG 0 (0-99); HEMATOCRIT 35.3 % (40.0-51.0); HEMOGLOBIN 12.5 g/dL (13.7-17.5); LEFT SHIFT FLG 0 (0-99); LIPEMIA HEMOLYSIS FLAG 90 (0-99); MEAN CELL HEMOGLOBIN 29.8 pg (27.9-34.1); MEAN CELL HEMOGLOBIN CONCENTR. 35.4 g/dL (32.4-36.7); MEAN CELL VOLUME 84.2 fL (81.5-99.8); MEAN PLATELET VOLUME 9.9 fL (8.7-11.7); PLATELET CLUMPS FLAG 10 (0-99); PLATELET COUNT 291 10^3/uL (150-400); RED BLOOD CELL COUNT 4.19 10^6/uL (4.40-6.38); RED CELL DISTRIBUTION WIDTH 13.4 % (11.5-15.2)
[2017-02-15 06:30] LABS: ALANINE AMINOTRANSFERASE 20 IU/L (21-72); ALBUMIN 4.2 g/dL (3.5-5.0); ALKALINE PHOSPHATASE 73 IU/L (38-126); ASPARTATE AMINOTRANSFERASE 15 IU/L (17-59); BILIRUBIN,TOTAL 0.4 mg/dL (0.1-1.4); CALCIUM 9.6 mg/dL (8.5-10.4); CARBON DIOXIDE 17 mEq/l (22-31); CHLORIDE 106 mEq/L (97-110); GLOMERULAR FILTRATION RATE > 60; GLUCOSE 113 mg/dL (70-100); SODIUM 139 mEq/L (134-144)
[2017-02-15] MEDS ORDERED: IOPAMIDOL (ISOVUE-300) 100 ML BTL ONE (06:38)
[2017-02-15 07:01] LABS: ANION GAP 16 mEq/L (8-16); POTASSIUM 3.5 mEq/L (3.5-5.2)
[2017-02-15] MEDS ORDERED: HYDROmorphONE/DILAUDID 1 MG/ML INJ ONE (09:56)
[2017-02-15] MEDS ORDERED: AMITRIPTYLINE HCL 50 MG TAB PO PRN (11:30)
[2017-02-15] MEDS ORDERED: NON-FORMULARY NEW DRUG (Triamcinolone Acetonide [Nasacort] 1 SPRAY) NS PRN (11:30)
--- NOTE | 2017-02-15 12:05 | GHP ---
[f rep st] HISTORY AND PHYSICAL DATE OF ADMISSION: 02/15/2017 HISTORY OF PRESENT ILLNESS: The patient is a pleasant 66-year-old gentleman with a history of chroni c neck pain with continuous narcotic dependence who presents with an episode of abdominal pain. He n otices he had some constipation yesterday morning. He had a firm stool with some bright red blood pe r rectum and subsequently just developed some crampy abdominal pain and some diarrhea. No one around has been sick. He has had some nausea but no vomiting. He has no lightheadedness or dizziness. He was admitted to the hospital 2 months ago with syncope and acute kidney injury in the setting of wha t was felt to be hypovolemic syncope. He has not taken antibiotics recently to the best of his recol lection. He does not drink a lot of alcohol. No one around him has been sick. No fever or chills. REVIEW OF SYSTEMS: A complete 10-point review of systems conducted and negative except as noted in t he HPI. PAST MEDICAL HISTORY: 1. Chronic neck pain with continuous narcotics. 2. Hypertension. 3. BPH. 4. Post herpetic neuralgia. He has a history of neck surgery. ALLERGIES: No known drug allergies. HOME MEDICATIONS: Tylenol, amitriptyline, amlodipine, finasteride, lisinopril, omeprazole, oxycodone , prednisone, tamsulosin, triamcinolone which is Nasacort. SOCIAL HISTORY: Lives in [facility]. No tobacco, no alcohol. Some family here. He used to work o n an assembly line. FAMILY HISTORY: Reviewed and unremarkable. PHYSICAL EXAMINATION: PRESENTING VITALS: Temperature 37, blood pressure 141/91, 104, now 72, which is pulse, breathing 20 times a minute, 99% on room air. GENERAL: No acute distress. HEENT: Sclera e anicteric. Oropharynx clear. Mucous membranes are moist. NECK: Supple without lymphadenopathy o r JVD. LUNGS: Clear to auscultation bilaterally. HEART: S1, S2. ABDOMEN: Soft. It is diffusely tender without rebound or guarding. Bowel sounds are present. LOWER EXTREMITIES: Without edema or calf tenderness. SKIN: Without rash. NEUROLOGIC: Exam is nonfocal. LABORATORY DATA: White count 10.1, hematocrit 35.3, which appears greater than his baseline. Platel ets are 281,000. His lactate is 1.4. Sodium is 139, potassium 3.5, chloride 106, bicarb 17, BUN 12, creatinine 1.0, glucose 113. Liver enzymes are unremarkable. CT images were reviewed, interpreted by me, show colitis in the transverse colon without free air, pe rforation, or evidence of diverticulitis. There is minimal vascular disease. The radiologist felt t his was inflammatory or infectious. I have discussed the case with Dr. Nohelia Ribera. ASSESSMENT AND PLAN: This is a 66-year-old gentle with acute colitis. 1. Colitis: I suspect this is either constipation with irritation of the transverse colon, followed by a compensatory diarrhea. I feel this is less likely than just a viral gastroenteritis. I will s end a Clostridium difficile, given his recent hospitalization. He does not have peritoneal signs. W e will manage him symptomatically with some limited IV pain medicine, nausea medicine and clear liqui d diet. 2. Bright red blood per rectum. I suspect this is anal, given his passage of a large firm stool. W ill follow. We will repeat his hematocrit in the morning. His anemia is not new. 3. Anion gap acidosis. He has a low bicarb with an upper and a normal serum bicarbonate. Will foll ow. He has a normal lactate. I do not suspect tissue hypoperfusion. 4. Leukocytosis. I suspect secondary to his current likely viral gastroenteritis. 5. Prophylaxis, low molecular on heparin. 6. Disposition. Inpatient status. PT/OT consults. /[id number]/MODL
[2017-02-15] MEDS: HYDROmorphONE/DILAUDID 1 MG/ML INJ IVP PRN ×4 (12:20→23:26)
[2017-02-15] MEDS: NS 1,000 ML IV SCH ×2 (12:21→21:11)
[2017-02-15] MEDS: ONDANSETRON 4 MG/2 ML VIAL IVP PRN ×2 (12:26→19:19)
--- NOTE | 2017-02-15 12:49 | PDMN ---
Medical Necessity Medical necessity: Pt meets IP criteria per MD; est los >2 mn for eval/tx of acute colitis, bright red blood per rectum, anion gap acidosis & leukocytosis; hx HTN; per H&P & order 02/15/17
[2017-02-15] MEDS: ACETAMINOPHEN 325 MG TAB PO PRN ×2 (14:00→20:03)
[2017-02-15] MEDS: PROMETHAZINE HCL 25 MG/ML INJ IVP PRN (15:33)
--- NOTE | 2017-02-15 16:07 | ASMTCASEMG ---
Living Arrangements What is your living Answers: Alone arrangement? Who do you live with? Type Of Residence What kind of residence do Answers: Assisted Living you live in? Discharge Plan Comments Coordination Status Comments Notes: Pt is a 66 y/o man admitted for abdominal pain. Pt lives at [facility]. Pt was here at [facility] on 12/16/16 for acute renal failure and syncope. PT/OT have been ordered and awaiting recommendations. Needs are TBD at this time. CM to follow. Plan: TBD; pending therapies Date Signed: 02/15/2017 04:06 PM Electronically Signed By:JAMEY Dee
[2017-02-15] MEDS: TAMSULOSIN HCL 0.4 MG CAP PO SCH (19:27)
[2017-02-15] MEDS: FINASTERIDE 5 MG TAB PO SCH (19:27)
[2017-02-15] MEDS: oxyCODONE IR 15 MG TAB PO PRN (21:11)
[2017-02-15] MEDS: ONDANSETRON DISINTEGRATING 4 MG TAB PO PRN (23:26)
[2017-02-16] MEDS: oxyCODONE IR 15 MG TAB PO PRN ×5 (02:18→23:03)
[2017-02-16] MEDS: PROMETHAZINE HCL 25 MG/ML INJ IVP PRN (02:23)
[2017-02-16] MEDS: HYDROmorphONE/DILAUDID 1 MG/ML INJ IVP PRN ×5 (04:04→20:52)
[2017-02-16] MEDS: ACETAMINOPHEN 325 MG TAB PO PRN ×4 (04:04→22:14)
[2017-02-16] MEDS: NS 1,000 ML IV SCH ×3 (05:07→22:14)
[2017-02-16 05:36] LABS: % IMMATURE GRANULYOCYTES 0.3 % (0.0-1.1); ABSOLUTE IMMATURE GRANULOCYTES 0.02 10^3/uL (0.00-0.10); ADD DIFF? NO; ADD MORPH? NO; ADD SCAN? NO; ATYPICAL LYMPHOCYTE FLAG 0 (0-99); FRAGMENT RBC FLAG 0 (0-99); HEMATOCRIT 31.5 % (40.0-51.0); HEMOGLOBIN 10.6 g/dL (13.7-17.5); LEFT SHIFT FLG 0 (0-99); LIPEMIA HEMOLYSIS FLAG 80 (0-99); MEAN CELL HEMOGLOBIN 29.2 pg (27.9-34.1); MEAN CELL HEMOGLOBIN CONCENTR. 33.7 g/dL (32.4-36.7); MEAN CELL VOLUME 86.8 fL (81.5-99.8); MEAN PLATELET VOLUME 9.9 fL (8.7-11.7); PLATELET CLUMPS FLAG 10 (0-99); PLATELET COUNT 237 10^3/uL (150-400); RED BLOOD CELL COUNT 3.63 10^6/uL (4.40-6.38); RED CELL DISTRIBUTION WIDTH 13.5 % (11.5-15.2)
[2017-02-16 05:51] LABS: ANION GAP 10 mEq/L (8-16); CALCIUM 8.6 mg/dL (8.5-10.4); CARBON DIOXIDE 23 mEq/l (22-31); CHLORIDE 108 mEq/L (97-110); CREATININE 0.9 mg/dL (0.7-1.3); GLOMERULAR FILTRATION RATE > 60; GLUCOSE 91 mg/dL (70-100); POTASSIUM 3.7 mEq/L (3.5-5.2); SODIUM 141 mEq/L (134-144)
[2017-02-16] MEDS: ENOXAPARIN 40 MG/0.4 ML SYR SC SCH (08:10)
[2017-02-16] MEDS: predniSONE 5 MG TAB PO SCH (08:11)
[2017-02-16] MEDS: PANTOPRAZOLE SODIUM 40 MG TAB PO SCH (08:12)
[2017-02-16] MEDS: LISINOPRIL 10 MG TAB PO SCH (08:12)
[2017-02-16] MEDS: ONDANSETRON 4 MG/2 ML VIAL IVP PRN ×3 (08:17→18:53)
[2017-02-16] MEDS ORDERED: NON-FORMULARY NEW DRUG (Omeprazole [Prilosec 20 Mg] 20 MG) PO SCH (09:00)
--- NOTE | 2017-02-16 11:49 | HOSPPROG ---
Hospitalist Progress Note Assessment/Plan: 66 yo M w chronic narcotic use for neck pain admitted w diarrhea diarrhea: resolved unlikely cdiff most c/w viral gastroenteritis vs resolving contstipation abd distension: check flat plate ileus vs resumption of his chronic semiconstipation proph: lmwh chronic narcotic use: needs more aggressive bowel regimen Subjective: no further diarrhea or flatus- distension Objective: Vital Signs Temp Pulse Resp BP Pulse Ox 36.7 C 61 18 119/70 95 02/16/17 11:16 02/16/17 11:16 02/16/17 11:16 02/16/17 11:16 02/16/17 11:16 Laboratory Results 02/16/17 05:25 02/16/17 05:25 02/15/17 02/16/17 02/17/17 05:59 05:59 05:59 Intake Total 2912 Output Total 1000 Balance 2912 -1000 - Physical Exam Constitutional: no apparent distress, appears nourished Eyes: PERRL, anicteric sclera Ears, Nose, Mouth, Throat: moist mucous membranes, hearing normal Cardiovascular: regular rate and rhythym, no murmur, rub, or gallop Respiratory: no respiratory distress, no rales or rhonchi Gastrointestinal: distension, No normoactive bowel sounds, No guarding, No rebound Genitourinary: no bladder fullness, No sauceda in urethra Skin: warm ICD10 Worksheet Patient Problems: Problems Problem Status Onset Abdominal pain Acute Anemia Acute Colitis Acute Acute renal failure Acute Chronic pain Acute Syncope Acute
[2017-02-16 16:27] VITALS: RESP 16
--- NOTE | 2017-02-16 17:03 | ASMTCMCOM ---
CM Note CM Note Notes: Pt cleared by PT/OT, will return home to [facility] w/support of sister when medically stable. CM available for any changes. Date Signed: 02/16/2017 05:02 PM Electronically Signed By:Marcelle Frazier RN
[2017-02-16] MEDS: FINASTERIDE 5 MG TAB PO SCH (19:38)
[2017-02-16] MEDS: TAMSULOSIN HCL 0.4 MG CAP PO SCH (19:39)
[2017-02-16] MEDS: ONDANSETRON DISINTEGRATING 4 MG TAB PO PRN (22:14)
[2017-02-17] MEDS ORDERED: AMITRIPTYLINE HCL 25 MG TAB PO PRN (01:00)
[2017-02-17] MEDS: HYDROmorphONE/DILAUDID 1 MG/ML INJ IVP PRN ×2 (01:03→05:30)
[2017-02-17] MEDS: oxyCODONE IR 15 MG TAB PO PRN ×2 (03:38→08:12)
[2017-02-17 07:24] VITALS: BP 128/77; PULSE 58; TEMP 98.2; O2SAT 95
[2017-02-17] MEDS: LISINOPRIL 10 MG TAB PO SCH (08:11)
[2017-02-17] MEDS: predniSONE 5 MG TAB PO SCH (08:12)
[2017-02-17] MEDS: ONDANSETRON DISINTEGRATING 4 MG TAB PO PRN (08:12)
[2017-02-17] MEDS: PANTOPRAZOLE SODIUM 40 MG TAB PO SCH (08:13)
[2017-02-17] MEDS: ENOXAPARIN 40 MG/0.4 ML SYR SC SCH (08:14)
--- NOTE | 2017-02-17 09:35 | HOSPPROG ---
Hospitalist Progress Note Assessment/Plan: 66 yo M w chronic narcotic use for neck pain admitted w diarrhea diarrhea: resolved unlikely cdiff most c/w viral gastroenteritis vs resolving contstipation abd distension: check flat plate ileus vs resumption of his chronic semiconstipation proph: lmwh chronic narcotic use: needs more aggressive bowel regimen dispo: home today > 30 minutes Subjective: feels better Objective: Vital Signs Temp Pulse Resp BP Pulse Ox 36.8 C 58 L 16 128/77 H 95 02/17/17 07:21 02/17/17 07:21 02/17/17 07:21 02/17/17 08:13 02/17/17 07:21 Laboratory Results 02/16/17 05:25 02/16/17 05:25 02/16/17 02/17/17 02/18/17 05:59 05:59 05:59 Intake Total 2912 1845 Output Total 3500 Balance 2912 -6205 - Physical Exam Constitutional: no apparent distress, appears nourished Eyes: PERRL, anicteric sclera Ears, Nose, Mouth, Throat: moist mucous membranes, hearing normal Cardiovascular: regular rate and rhythym, no murmur, rub, or gallop Respiratory: no respiratory distress, no rales or rhonchi Gastrointestinal: normoactive bowel sounds, soft, non-tender abdomen Genitourinary: no bladder fullness, No sauceda in urethra Skin: warm, normal color Musculoskeletal: full muscle strength Neurologic: AAOx3 ICD10 Worksheet Patient Problems: Problems Problem Status Onset Abdominal pain Acute Anemia Acute Colitis Acute Acute renal failure Acute Chronic pain Acute Syncope Acute
[2017-02-17] MEDS ORDERED: POLYETHYLENE GLYCOL 3350 17 GM PKT PO SCH (09:45)
--- NOTE | 2017-02-17 16:38 | ASDISCHSUM ---
Discharge Information Plan Status:Home with No Needs Medically Cleared to Leave: Discharge Date:02/17/2017 10:17 AM CM D/C Disposition:Home, Routine, Self-Care ADT D/C Disposition:Home, Routine, Self-Care Projected Discharge Date:02/17/2017 10:17 AM Transportation at D/C: Discharge Delay Reason: Follow-Up Date:02/17/2017 10:17 AM Discharge Slot: Final Diagnosis: Placement Information Patient Contact Information Contact Name:CHRISTINCASEYKARLA Relationship:Sister Address: Work Phone: City:[place] Alternate Phone: [facility]/Zip Code:[place] [address] Email: Financial Information Financial Class: Primary Plan Desc:MEDICARE INPATIENT Primary Plan Number:[id number] Secondary Plan Desc: Secondary Plan Number: Assessment Information LACE LACE Acuity / Level of Care Answers: Was the patient admitted to hospital via the emergency department? Yes: Emergency dept visits in Answers: 1 last 6 months Score: 4 Date Signed: 02/15/2017 09:50 AM Electronically Signed By:Geoavnna Lacy RN [facility] Initial CM Assessment Living Arrangements What is your living Answers: Alone arrangement? Who do you live with? Type Of Residence What kind of residence do Answers: Assisted Living you live in? Discharge Plan Comments Coordination Status Comments Notes: Pt is a 66 y/o man admitted for abdominal pain. Pt lives at [facility]. Pt was here at [facility] on 12/16/16 for acute renal failure and syncope. PT/OT have been ordered and awaiting recommendations. Needs are TBD at this time. CM to follow. Plan: TBD; pending therapies Date Signed: 02/15/2017 04:06 PM Electronically Signed By:JAMEY Dee [facility] CM Progress Note CM Note CM Note Notes: Pt cleared by PT/OT, will return home to [facility] w/support of sister when medically stable. CM available for any changes. Date Signed: 02/16/2017 05:02 PM Electronically Signed By:Marcelle Frazier RN Intervention Information Intervention Type:*IM-Signed Date of Service:02/17/2017 10:05 AM Patient Type:Inpatient Staff Member:Nuvia Ramos Hours: Discipline: Severity: Comment:
== END 2017-02-17 10:17 | disposition home or self-care (01) | DRG 392 ==
LOC: OBSVTOIN 08:51 → F3E 10:44
PROVIDERS: ADMIT Internal Medicine; ATTEND Internal Medicine
DX: K52.9 Noninfective gastroenteritis and colitis, unspecified (principal); K62.5 Hemorrhage of anus and rectum; E87.2 Acidosis; G89.29 Other chronic pain; I10 Essential (primary) hypertension; N40.0 Benign prostatic hyperplasia without lower urinary tract symptoms
CPT/HCPCS: 96374; 97116-GP; 97161-GP; 97165-GO; G8978-GP-CI; G8979-GP-CI; G8980-GP-CI; G8987-GO-CI; G8988-GO-CH; G8989-GO-CH; J1170; J1650; J2405; J2550; Q9967

== ENCOUNTER 2017-02-20 13:44 | Emergency (ER) | payer OTHER ==
[2017-02-20 14:41] VITALS: RESP 16
--- NOTE | 2017-02-20 16:22 | EDPHY ---
H & P Time Seen by Provider: 02/20/17 16:16 HPI/ROS: Chief complaint. Abdominal pain HPI. 66-year-old male with chronic abdominal pain presents emergency department with continued out of abdominal pain and constipation. He notes pellets eyes bowel movements. He has had constipation for 1 week. He was recently admitted for colitis and discharged from the hospital 3 days ago. He has been taking too many of his oxycodone moans and is out of his pain medication is requesting further pain medication. He has no vomiting. No fever. His abdomen has some spasms but no focal areas of pain. He notes decreased urine output and decreased oral input. ROS Constitutional. no fever/chills, no weakness Eyes. no problems with vision ENT. no sore throat, no nasal drainage Cardiovascular. no chest pain Respiratory. no shortness of breath, no cough Abdominal. Abdominal pain and constipation . Decreased urination MS. no calf pain/swelling, no neck/back pain, no joint pain Skin. no rash Lymph. no swollen glands Neuro. no headache, no dizziness, no difficulty walking or with speech Past Medical/Surgical History: Chronic pain spinal stenosis, multiple orthopedic surgeries, hepatitis-A, recent colitis Social History: Single, nonsmoker, no alcohol Smoking Status: Former smoker Physical Exam: General Appearance: Alert well-developed male mild distress vital signs are stable. Eyes: Pupils equal and round no pallor or injection. ENT, Mouth: Mucous membranes are moist. Respiratory: There are no retractions, lungs are clear to auscultation. Cardiovascular: Regular rate and rhythm. Gastrointestinal: Abdomen is soft with mild diffuse tenderness. Normal bowel sounds. No masses. Rectal exam shows an empty rectal vault. Trace brown negative stool Neurological: Awake and alert, sensory and motor exams grossly normal. Skin: Warm and dry, no rashes. Musculoskeletal: Neck is supple nontender. Extremities symmetrical, full range of motion. Psychiatric: Patient is oriented X 3, there is no agitation. Constitutional: Initial Vital Signs Temperature (C) 36.5 C 02/20/17 14:38 Heart Rate 89 02/20/17 14:38 Respiratory Rate 16 02/20/17 14:38 Blood Pressure 159/88 H 02/20/17 14:38 O2 Sat (%) 97 02/20/17 14:38 O2 Delivery Mode Room Air Allergies/Adverse Reactions: No Known Allergies Allergy (Verified 02/20/17 14:38) Home Medications: Medication Instructions Recorded Acetaminophen [Tylenol 325mg (*)] 650 mg PO Q6HRS PRN 12/16/16 Amitriptyline HCl [Elavil 50 mg 25 - 50 mg PO HS PRN 12/16/16 (*)] amLODIPine BESYLATE [Norvasc 10 mg 10 mg PO DAILY 12/16/16 (*)] oxyCODONE IR [Oxycodone Ir (*)] 7.5 - 15 mg PO Q4HRS PRN 12/16/16 Finasteride [Proscar 5 MG (*)] 5 mg PO HS 02/15/17 Lisinopril [Zestril 10 mg (*)] 10 mg PO DAILY 02/15/17 Omeprazole [Prilosec 20 mg] 20 mg PO DAILY 02/15/17 Tamsulosin HCl [Flomax 0.4 MG (*)] 0.4 mg PO HS 02/15/17 Triamcinolone Acetonide [Nasacort] 1 spray NS DAILY PRN 02/15/17 predniSONE 5 mg PO DAILY 02/15/17 Polyethylene Glycol 3350 [Miralax 17 gm PO DAILY #30 pkt 02/17/17 17 gm (*)] oxyCODONE IR [Oxycodone Ir (*)] 15 mg PO Q4-8PRN PRN #3 tab 02/20/17 Medical Decision Making - Diagnostics Imaging Results: Imaging Impressions Abdomen X-Ray 02/20/17 18:23 Impression: Moderate constipation. Upright abdomen reviewed by me shows moderate constipation but no evidence of free air or air-fluid levels Procedures: IV normal saline. Patient is given 1 Percocet in the emergency department. ED Course/Re-evaluation: Re-evaluation 6:45 p.m.. The patient and I discussed imaging study results, laboratory evaluation. We discussed treatment plan including criteria for return and importance of follow-up and further evaluation for chronic constipation and the fact that he is out of pain medication because he has been using more than has been prescribed. He and I discussed that the emergency department will not feel extra medications for chronic pain. I will give the patient a prescription for 1 day worth of pain medication so he can see his physician for further medication. Patient expresses understanding and agreement Differential Diagnosis: I considered small-bowel obstruction, constipation, colitis. It appears the patient has significant constipation due to chronic opiate use - Data Points Laboratory Results: Laboratory Results 02/20/17 17:23 12 17:23 02/20/17 12 12 17:23 17:23 17:01 WBC 6.42 10^3/uL 10^3/uL (3.80-9.50) RBC 4.25 10^6/uL L 10^6/uL (4.40-6.38) Hgb 12.4 g/dL L g/dL (13.7-17.5) Hct 36.4 % L % (40.0-51.0) MCV 85.6 fL fL (81.5-99.8) MCH 29.2 pg pg (27.9-34.1) MCHC 34.1 g/dL g/dL (32.4-36.7) RDW 13.7 % % (11.5-15.2) Plt Count 281 10^3/uL 10^3/uL (150-400) MPV 10.2 fL fL (8.7-11.7) Neut % (Auto) 74.5 % H % (39.3-74.2) Lymph % (Auto) 15.7 % % (15.0-45.0) [place] % (Auto) 6.4 % % (4.5-13.0) Eos % (Auto) 2.0 % % (0.6-7.6) Baso % (Auto) 0.8 % % (0.3-1.7) Nucleat RBC Rel Count 0.0 % % (0.0-0.2) Absolute Neuts (auto) 4.78 10^3/uL 10^3/uL (1.70-6.50) Absolute Lymphs (auto) 1.01 10^3/uL 10^3/uL (1.00-3.00) Absolute Monos (auto) 0.41 10^3/uL 10^3/uL (0.30-0.80) Absolute Eos (auto) 0.13 10^3/uL 10^3/uL (0.03-0.40) Absolute Basos (auto) 0.05 10^3/uL 10^3/uL (0.02-0.10) Absolute Nucleated RBC 0.00 10^3/uL 10^3/uL (0-0.01) Immature Gran % 0.6 % % (0.0-1.1) Immature Gran # 0.04 10^3/uL 10^3/uL (0.00-0.10) Sodium 142 mEq/L mEq/L (134-144) Potassium 3.7 mEq/L mEq/L (3.5-5.2) Chloride 105 mEq/L mEq/L (97-110) Carbon Dioxide 22 mEq/l mEq/l (22-31) Anion Gap 15 mEq/L mEq/L (8-16) BUN 13 mg/dL mg/dL (7-23) Creatinine 0.9 mg/dL mg/dL (0.7-1.3) Estimated GFR > 60 Glucose 103 mg/dL H mg/dL (70-100) Calcium 9.7 mg/dL mg/dL (8.5-10.4) Lipase 74 IU/L IU/L (23-300) Stool Occult Bld Scrn NEGATIVE (NEGATIVE) Medications Given: Discontinued Medications Sodium Chloride (Ns) 1,000 mls @ 0 mls/hr IV EDNOW ONE; Wide Open PRN Reason: Protocol Stop: 02/20/17 17:01 Last Admin: 02/20/17 17:45 Dose: 1,000 mls Oxycodone/Acetaminophen (Percocet 5/325) 1 tab PO EDNOW ONE Stop: 02/20/17 17:02 Last Admin: 02/20/17 17:47 Dose: 1 tab Departure - Departure Disposition: Home, Routine, Self-Care Clinical Impression: Abdominal pain Qualifiers: Abdominal location: periumbilical Qualified Code(s): R10.33 - Periumbilical pain Constipation Qualifiers: Constipation type: drug induced constipation Qualified Code(s): K59.03 - Drug induced constipation Condition: Good Instructions: Constipation (ED), High Fiber Diet (ED) Additional Instructions: Increased fluids including fruit and prune juice. Frequent, small sips fluids if nauseated. Also make sure your using MiraLax, milk of magnesia, para Colace to help with constipation. Follow-up with Dr. Vigil in 1 day for prescription for further medication as the emergency department is unable to feel medication for chronic pain Referrals: Odalis Castro PA [Primary Care Provider] - 1-2 days without fail Prescriptions: oxyCODONE IR [Oxycodone Ir (*)] 15 mg PO Q4-8PRN PRN #3 tab PRN Reason: Pain, Moderate
[2017-02-20] MEDS ORDERED: NS 1,000 ML IV ONE (17:00)
[2017-02-20] MEDS ORDERED: OXYCODONE/APAP 5/325 TAB PO ONE (17:01)
[2017-02-20 18:07] LABS: % IMMATURE GRANULYOCYTES 0.6 % (0.0-1.1); ABSOLUTE IMMATURE GRANULOCYTES 0.04 10^3/uL (0.00-0.10); ADD DIFF? NO; ADD MORPH? NO; ADD SCAN? NO; ANION GAP 15 mEq/L (8-16); ATYPICAL LYMPHOCYTE FLAG 0 (0-99); CALCIUM 9.7 mg/dL (8.5-10.4); CARBON DIOXIDE 22 mEq/l (22-31); CHLORIDE 105 mEq/L (97-110); CREATININE 0.9 mg/dL (0.7-1.3); FRAGMENT RBC FLAG 0 (0-99); GLOMERULAR FILTRATION RATE > 60; GLUCOSE 103 mg/dL (70-100); HEMATOCRIT 36.4 % (40.0-51.0); HEMOGLOBIN 12.4 g/dL (13.7-17.5); LEFT SHIFT FLG 0 (0-99); LIPEMIA HEMOLYSIS FLAG 90 (0-99); MEAN CELL HEMOGLOBIN 29.2 pg (27.9-34.1); MEAN CELL HEMOGLOBIN CONCENTR. 34.1 g/dL (32.4-36.7); MEAN CELL VOLUME 85.6 fL (81.5-99.8); MEAN PLATELET VOLUME 10.2 fL (8.7-11.7); PLATELET CLUMPS FLAG 0 (0-99); PLATELET COUNT 281 10^3/uL (150-400); POTASSIUM 3.7 mEq/L (3.5-5.2); RED BLOOD CELL COUNT 4.25 10^6/uL (4.40-6.38); RED CELL DISTRIBUTION WIDTH 13.7 % (11.5-15.2); SODIUM 142 mEq/L (134-144)
[2017-02-20 18:36] VITALS: O2SAT 96
[2017-02-20 19:17] VITALS: BP 144/76; PULSE 74; TEMP 98.6
== END 2017-02-20 19:15 | disposition home or self-care (01) ==
DX: K59.00 Constipation, unspecified (principal); E86.9 Volume depletion, unspecified; Z87.891 Personal history of nicotine dependence

== ENCOUNTER 2017-04-18 02:18 | Emergency (ER) | payer OTHER ==
[2017-04-18] MEDS ORDERED: LORazepam 1 MG TAB PO ONE (02:27)
[2017-04-18] MEDS ORDERED: NS 1,000 ML IV ONE (02:27)
[2017-04-18 02:29] VITALS: PULSE 87; TEMP 98.8; O2SAT 97
--- NOTE | 2017-04-18 02:29 | EDPHY ---
H & P HPI/ROS: HPI CHIEF COMPLAINT: Opiate withdrawal. HISTORY OF PRESENT ILLNESS: Patient is a 66-year-old male, presents emergency room by EMS from [facility] where he resides, for opiate withdrawal. Patient states he has been cutting back on his oxycodone he normally takes 15 mg but with his pain management doctor he has cut back to 10 mg. He states tonight or over the last 24 hr been feeling anxious and unable to sleep tonight so he decided to take FIVE amitriptyline tabs over the past 24 hours to help him sleep. Additionally he took 1 dose of Topamax. He is unsure of the dose of the amitriptyline or Topamax. Additionally has been taking Tylenol he thinks they are 500 mg tablets over the past 24 hr. He reports that he has been taking possibly 10-12 tabs(500mg) in total over the last 24 hr. Denies any other ingestions. He denies wanting to harm himself or suicidal ideation. He states he has been taking Tylenol for pain control. Additionally the other medications to help him sleep. He decided to call 911 as he felt restless anxious and could not sleep. Patient denies any chest pain or shortness of breath. Denies abdominal pain. Denies nausea vomiting or diarrhea. Denies fever. Past Medical History: Chronic pain, chronic neck pain, fibromyalgia, colitis, recent diarrheal illness Past Surgical History: Previous neck surgery Social History: Denies drugs alcohol tobacco. Resides at [facility]. Family History: Noncontributory ROS REVIEW OF SYSTEMS: A comprehensive 10 point review of systems is otherwise negative aside from elements mentioned in the history of present illness. Exam Constitutional appears nontoxic slightly anxious, Appears dry on exam, triage nursing summary reviewed, vital signs reviewed, awake/alert. Eyes normal conjunctivae and sclera, EOMI, PERRLA. HENT normal inspection, atraumatic, Dry mucus membranes, no epistaxis, neck supple/ no meningismus, no raccoon eyes. Respiratory clear to auscultation bilaterally, normal breath sounds, no respiratory distress, no wheezing. Cardiovascular rate normal, regular rhythm, no murmur, no edema, distal pulses normal. Gastrointestinal soft, non-tender, no rebound, no guarding, normal bowel sounds, no distension, no pulsatile mass. Genitourinary no CVA tenderness. Musculoskeletal no midline vertebral tenderness, full range of motion, no calf swelling, no tenderness of extremities, no meningismus, good pulses, neurovascularly intact. Skin pink, warm, & dry, no rash, skin atraumatic. Neurologic awake, alert and oriented x 3, AAOx3, moves all 4 extremities equally, motor intact, sensory intact, CN II-XII intact, normal cerebellar, normal vision, normal speech. Psychiatric normal mood/affect. Heme/Lymph/Immune no lymphadenopathy. Differential Diagnosis: Includes but is not limited to in a particular order acute anxiety, opiate withdrawal, Tylenol overdose accidental. Medical Decision Making: Plan for this patient given his anxiety and possible opiate withdrawal symptoms I will give him a dose of clonidine as well as 1 mg of Ativan. Additionally will check a Tylenol level and salicylate level and liver enzymes, as he has been taking Tylenol to help with pain control however seems like he may be taking too much. And then will re-evaluate. Re-evaluation: 0325AM: I did re-evaluate this patient this time. He does feel slightly better with clonidine and 1 mg p. o. Ativan. He has repeatedly asked me multiple times for oxycodone. I explained him I have declined to give him any opioids here in the emergency room given that he is tapering off his opioids. His vital signs are stable. I will give him a prescription for clonidine the may help him with opiate withdrawal. Additionally I recommend he has close follow-up with his primary care doctor/ pain management doctor who manages his opioid prescriptions and tapering. He has not had any vomiting here diarrhea. He appears otherwise well. He did receive 1 L normal saline here for IV hydration. I will allowed to go back to [facility]. Clonidine prescription given. I discussed return precautions with him if he starts having vomiting or severe diarrhea or feels worse return emergency room. Recommend close follow-up with his PCP he understands. EKG interpretation by me on record in [facility] system. Impression time of EKG 2:34 a.m., sinus rhythm rate of 88 left anterior fascicular block present. EKG is similar to previous EKG dated 12/16/2016. No prolonged intervals. Additionally blood work reviewed. Tylenol level is less than 10. Same is salicylates. Chemistry panel consistent with dehydration. Did receive 1 L normal saline here in emergency room. And is feeling better. Source: Patient, EMS - Medical/Surgical History Hx Asthma: No Hx Chronic Respiratory Disease: No Hx Diabetes: No Hx Cardiac Disease: Yes Hx Renal Disease: Yes Hx Cirrhosis: No Hx Alcoholism: No Hx HIV/AIDS: No Hx Splenectomy or Spleen Trauma: No Other PMH: chronic neck pain, spinal stenosis, hernia repair, tennis elbow, knee surgery, bone spur surgery on right big toe, heart murmur, hepatitis A, colitis - Social History Smoking Status: Former smoker Constitutional: Initial Vital Signs Temperature (C) 37.1 C 04/18/17 02:20 Heart Rate 87 04/18/17 02:20 Respiratory Rate 20 04/18/17 02:20 Blood Pressure 169/99 H 04/18/17 02:20 O2 Sat (%) 97 04/18/17 02:20 O2 Delivery Mode Room Air Allergies/Adverse Reactions: No Known Allergies Allergy (Verified 04/18/17 02:29) Home Medications: Medication Instructions Recorded Acetaminophen [Tylenol 325mg (*)] 650 mg PO Q6HRS PRN 12/16/16 Amitriptyline HCl [Elavil 50 mg 25 - 50 mg PO HS PRN 12/16/16 (*)] amLODIPine BESYLATE [Norvasc 10 mg 10 mg PO DAILY 12/16/16 (*)] oxyCODONE IR [Oxycodone Ir (*)] 7.5 - 15 mg PO Q4HRS PRN 12/16/16 Finasteride [Proscar 5 MG (*)] 5 mg PO HS 02/15/17 Lisinopril [Zestril 10 mg (*)] 10 mg PO DAILY 02/15/17 Omeprazole [Prilosec 20 mg] 20 mg PO DAILY 02/15/17 Tamsulosin HCl [Flomax 0.4 MG (*)] 0.4 mg PO HS 02/15/17 Triamcinolone Acetonide [Nasacort] 1 spray NS DAILY PRN 02/15/17 predniSONE 5 mg PO DAILY 02/15/17 Polyethylene Glycol 3350 [Miralax 17 gm PO DAILY #30 pkt 02/17/17 17 gm (*)] oxyCODONE IR [Oxycodone Ir (*)] 15 mg PO Q4-8PRN PRN #3 tab 02/20/17 clonIDINE [Catapres (*)] 0.1 mg PO BID #10 tab 04/18/17 Medical Decision Making - Data Points Laboratory Results: Laboratory Results 04/18/17 02:40 04/18/17 02:40 04/18/17 04/18/17 02:40 02:40 WBC 9.60 10^3/uL H 10^3/uL (3.80-9.50) RBC 4.81 10^6/uL 10^6/uL (4.40-6.38) Hgb 14.1 g/dL g/dL (13.7-17.5) Hct 40.4 % % (40.0-51.0) MCV 84.0 fL fL (81.5-99.8) MCH 29.3 pg pg (27.9-34.1) MCHC 34.9 g/dL g/dL (32.4-36.7) RDW 15.2 % % (11.5-15.2) Plt Count 304 10^3/uL 10^3/uL (150-400) MPV 9.3 fL fL (8.7-11.7) Neut % (Auto) 77.7 % H % (39.3-74.2) Lymph % (Auto) 15.3 % % (15.0-45.0) [place] % (Auto) 5.8 % % (4.5-13.0) Eos % (Auto) 0.5 % L % (0.6-7.6) Baso % (Auto) 0.4 % % (0.3-1.7) Nucleat RBC Rel Count 0.0 % % (0.0-0.2) Absolute Neuts (auto) 7.45 10^3/uL H 10^3/uL (1.70-6.50) Absolute Lymphs (auto) 1.47 10^3/uL 10^3/uL (1.00-3.00) Absolute Monos (auto) 0.56 10^3/uL 10^3/uL (0.30-0.80) Absolute Eos (auto) 0.05 10^3/uL 10^3/uL (0.03-0.40) Absolute Basos (auto) 0.04 10^3/uL 10^3/uL (0.02-0.10) Absolute Nucleated RBC 0.00 10^3/uL 10^3/uL (0-0.01) Immature Gran % 0.3 % % (0.0-1.1) Immature Gran # 0.03 10^3/uL 10^3/uL (0.00-0.10) Sodium 143 mEq/L mEq/L (135-145) Potassium 4.3 mEq/L mEq/L (3.5-5.2) Chloride 107 mEq/L mEq/L (97-110) Carbon Dioxide 16 mEq/l L mEq/l (22-31) Anion Gap 20 mEq/L H mEq/L (8-16) BUN 16 mg/dL mg/dL (7-23) Creatinine 0.9 mg/dL mg/dL (0.7-1.3) Estimated GFR > 60 Glucose 125 mg/dL H mg/dL (70-100) Calcium 10.6 mg/dL H mg/dL (8.5-10.4) Total Bilirubin 0.7 mg/dL mg/dL (0.1-1.4) Conjugated Bilirubin 0.3 mg/dL mg/dL (0.0-0.5) Unconjugated Bilirubin 0.4 mg/dL mg/dL (0.0-1.1) AST 17 IU/L IU/L (17-59) ALT 23 IU/L IU/L (21-72) Alkaline Phosphatase 67 IU/L IU/L (38-126) Total Protein 8.4 g/dL H g/dL (6.3-8.2) Albumin 5.1 g/dL H g/dL (3.5-5.0) Salicylates < 1.0 mg/dL L mg/dL (2.0-20.0) Acetaminophen < 10 mcg/mL L mcg/mL (10-30) Medications Given: Discontinued Medications Clonidine (Catapres) 0.1 mg PO EDNOW ONE Stop: 04/18/17 02:28 Last Admin: 04/18/17 02:45 Dose: 0.1 mg Sodium Chloride (Ns) 1,000 mls @ 0 mls/hr IV EDNOW ONE; Wide Open PRN Reason: Protocol Stop: 04/18/17 02:28 Last Admin: 04/18/17 02:45 Dose: 1,000 mls Lorazepam (Ativan) 1 mg PO EDNOW ONE Stop: 04/18/17 02:28 Last Admin: 04/18/17 02:45 Dose: 1 mg Departure - Departure Disposition: Home, Routine, Self-Care Clinical Impression: Opioid withdrawal Condition: Good Instructions: Opioid Withdrawal (ED) Additional Instructions: 1. Follow up with your pain management doctor or primary care doctor. 2. Return emergency room if you have worsening symptoms questions or concerns. 3. Clonidine prescription will be helping you with opiate withdrawal. It can lower your blood pressure if you feel very lightheaded hold the prescription Referrals: Patient,NotPresent [Unknown] - As per Instructions Prescriptions: clonIDINE [Catapres (*)] 0.1 mg PO BID #10 tab
--- NOTE | 2017-04-18 02:37 | CPEKG ---
Heart Rate: 88 RR Interval: 682 P-R Interval: 164 QRSD Interval: 104 QT Interval: 344 QTC Interval: 417 P [place]: 63 QRS [place]: -60 T Wave [place]: -16 EKG Severity - ABNORMAL ECG - EKG Impression: SINUS RHYTHM EKG Impression: LEFT ANTERIOR FASCICULAR BLOCK Electronically Signed By: Giuseppe Capellan 18-Apr-2017 07:19:19
[2017-04-18 02:53] LABS: PLATELET COUNT 304 10^3/uL (150-400)
[2017-04-18 04:04] VITALS: BP 139/101; RESP 16
== END 2017-04-18 04:03 | disposition home or self-care (01) ==
LOC: EDUNIT#
PROC: 3E0337Z Introduction of Electrolytic and Water Balance Substance into Peripheral Vein, Percutaneous Approach (ICD-10-PCS; principal; 2017-04-18)
DX: F11.23 Opioid dependence with withdrawal (principal); E86.9 Volume depletion, unspecified; Z87.891 Personal history of nicotine dependence
CPT/HCPCS: G0480

== ENCOUNTER → 2018-04-10 | Outpatient (CLI) | payer OTHER | LOC: FIMAGING 17:44 | PROVIDERS: ATTEND Physician Assistant | DX: R10.9 Unspecified abdominal pain (principal); R11.2 Nausea with vomiting, unspecified ==